=== PATIENT | female | born 1940 | race Caucasian/White ===

== ENCOUNTER 2017-01-11 06:28 | Day surgery (SDC) | payer MEDICARE ==
[~2017-01-11] VITALS: Ht 154.9 cm; Wt 51.4 kg
[2017-01-11] MEDS ORDERED: SODIUM CHLORIDE 0.9% 1,000 ML IV SCH ×2 (06:44)
[2017-01-11 06:54] VITALS: BP 162/98
[2017-01-11] MEDS ORDERED: CEFAZOLIN PMX 1GM/50ML 50 ML IVPB ONE (07:00)
[2017-01-11] MEDS ORDERED: PLEASE ENTER ALLERGIES MC SCH ×2 (07:00)
[2017-01-11] MEDS ORDERED: L.AC1CAP6 PO (07:29)
[2017-01-11] MEDS ORDERED: LOSA25TA5 PO (07:29)
[2017-01-11] MEDS ORDERED: ASPI-621 PO (07:29)
[2017-01-11] MEDS ORDERED: MAGN400T7 PO (07:29)
[2017-01-11] MEDS ORDERED: LABE200T3 PO (07:29)
[2017-01-11] MEDS ORDERED: ALPR0.25 PO (07:30)
[2017-01-11] MEDS ORDERED: LIDOCAINE 2%, 20ML ONE ×2 (07:30→12:36)
[2017-01-11] MEDS ORDERED: FENTANYL PF 100 MCG/2ML ONE (07:30)
[2017-01-11] MEDS ORDERED: ISOPROTERENOL 0.2MG/ML, 5ML ONE (07:30)
[2017-01-11] MEDS ORDERED: MIDAZOLAM 1 MG/ML, 5ML ONE (07:30)
[2017-01-11] MEDS ORDERED: fiber PO (07:31)
[2017-01-11 08:12] LABS: ASPARTATE AMINO TRANSFERASE 32 U/L (15-37); BLOOD UREA NITROGEN 18 mg/dL (7-18)
[2017-01-11] MEDS ORDERED: BUPIVACAINE 0.25% ONE (12:34)
== END 2017-01-11 14:27 | disposition home or self-care (01) ==
LOC: CACL 06:28
PROVIDERS: ATTEND Internal Medicine Cardiovascular Disease
DX: I47.1 Supraventricular tachycardia (principal); I25.10 Atherosclerotic heart disease of native coronary artery without angina pectoris; I10 Essential (primary) hypertension; E78.5 Hyperlipidemia, unspecified; Z79.02 Long term (current) use of antithrombotics/antiplatelets; Z79.899 Other long term (current) drug therapy; Z79.82 Long term (current) use of aspirin
CPT/HCPCS: 33282; 36415; 80053; 85025; 85610; 85730; 93620; 93621; 93623; 99156; 99157; C1730; C1764; C1894; C2630; J2250; J3010; J3490